=== PATIENT | male | born 1970 | race Two or more races ===

== ENCOUNTER 2021-04-10 12:59 | Outpatient (REF) | payer MEDICAID, SELFPAY ==
--- NOTE | 2021-04-10 13:00 | EEG_ITS ---
The waking background activity consists of a symmetrical well-defined posterior alpha of 9 to 9.5 hertz, intermixed anteriorly with low-voltage fast frequencies. Drowsiness is characterized by diffuse theta slowing. During sleep, symmetrical frontal central sleep spindles and vertex sharp transients developed over both hemispheres. Arousals are unremarkable. The patient remains asymptomatic. No focal, lateralizing, or paroxysmal discharges seen. IMPRESSION: This 24-hour ambulatory EEG is within normal limits. MD LORENA Dolan/CARMEN / [id number]
== END 2021-04-10 13:00 | disposition home or self-care (01) ==
LOC: HO.NEURO 12:59
PROVIDERS: Visit Provider Psychiatry & Neurology Neurology
DX: R56.9 Unspecified convulsions (principal)
CPT/HCPCS: 95708; 95957

== ENCOUNTER → 2021-04-25 13:57 | Outpatient (REF) | payer MEDICAID, SELFPAY ==
--- NOTE | 2021-04-25 14:05 | ECG_ITS ---
Hook-up date: 2021-04-25 14:11:00 Duration: 47:59:00 Test Indications: SYNCOPE Medications: [id number] QRS complexes 6 Ventricular ectopics which represent <1 % of total QRS comp. 23 Supraventricular ectopics which represent <1 % of total QRS comp. * Paced QRS complexs which represent % of total QRS comp. VENTRICULAR ECTOPY 6 Isolated 0 Bigeminal Cycles 0 Couplets 0 Runs 0 Beats in Runs * Beats LONGEST at * BPM at :: -- * Beats FASTEST at * BPM at :: -- SUPRAVENTRICULAR ECTOPY 23 Isolated 0 Couplets 0 Runs 0 Beats in Runs * Beats LONGEST at * BPM at :: -- * Beats FASTEST at * BPM at :: -- HEART RATES 50 MIN at 04:54:13 2021-04-26 90 AVG 148 MAX at 10:03:05 2021-04-26 LONGEST RR 1.1360 secs at 03:15:28 2021-04-26 S-T LEVELS Channel 1 - 128 mm at 14:11:00 2021-04-25 - 128 mm at 14:11:00 2021-04-25 Channel 2 - 128 mm at 14:11:00 2021-04-25 - 128 mm at 14:11:00 2021-04-25 Channel 3 - 128 mm at 03:33:01 -- - 128 mm at 03:33:01 Basic rhythm Normal sinus rhythm No long pause or profound bradycardia Frequent Sinus tachycardia No dangerous dysrhythm periods No diary submitted Referred By: Jay Crooks Overread By: KATHLEEN HAILE MD
== END ==
LOC: HO.CARD 13:57
PROVIDERS: Visit Provider Psychiatry & Neurology Neurology
DX: R55 Syncope and collapse (principal); R32 Unspecified urinary incontinence
CPT/HCPCS: 93225; 93226